=== PATIENT | male | born 1970 | race Caucasian/White ===

== ENCOUNTER 2021-07-31 14:41 | Emergency (ER) | payer BC, OTHER ==
[2021-07-31] MEDS ORDERED: Ibuprofen 600 MG Tab PO ONE (15:40)
--- NOTE | 2021-07-31 15:40 | EDM.PDOC ---
<MaggieBrennon Yazmin - Last Filed: 08/01/21 03:53> ED HPI GENERAL MEDICAL PROBLEM - General Chief Complaint: Respiratory Problem Stated Complaint: KILLDEER AMB Time Seen by Provider: 07/31/21 15:31 - Related Data Allergies Allergy/AdvReac Type Severity Reaction Status Date / Time dust, cats and dogs Allergy Difficulty Uncoded 07/31/21 14:48 Breathing Home Meds: Home Meds Budesonide/Formoterol Fumarate [Symbicort 80-4.5 MCG] 2 puff IH BID 07/31/21 [History] Course - Re-Assessments/Exams Free Text/Narrative Re-Assessment/Exam: 08/01/21 02:17 Checking in on the patient is Dr. Thayer is off shift patient is doing well. No new complaints. We have actually been able to decrease his oxygen down to 2 L. 08/01/21 03:51 I was notified a short time ago by the [facility] that a bed was available at [facility]. I did call [facility] talk to Jean-Paul at the call center who in fact confirms this availability and was waiting for my call. He got me in touch with Dr. Ivy, the hospitalist who kindly accepted the patient. Patient will be started on remdesivir and dexamethasone and the transfer has been set up. Departure - Departure Time of Disposition: 03:52 Disposition: DC/Tfer to [facility] 02 Clinical Impression: Pneumonia due to COVID-19 virus - Discharge Information Referrals: Deanne Stock SHARK BIOLOGIST [Primary Care Provider] - Forms: ED Department Discharge <Eduard Thayer - Last Filed: 08/02/21 06:56> ED HPI GENERAL MEDICAL PROBLEM - General Source of Information: Reports: Patient History Limitations: Reports: No Limitations - History of Present Illness INITIAL COMMENTS - FREE TEXT/NARRATIVE: 51-year-old male presents to the ED from [facility] after going to the catheter clinic today. Identified to have very low O2 sats I believe in the upper 80s and was advised to come to the ED. Covid test done at the clinic in [facility] today was positive he reports he has been ill for about a week with development of headache fever chills nasal congestion initially and sore throat. Within a day or 2 about it moved into his chest and he has a paroxysmal mildly productive cough at this time. He has not looked at the phlegm. Denies any pain when he takes in a deep breath. Intermittent fever with for which he has been taking Tylenol. Generalized weakness. Decreased appetite. Very minimal diarrhea he states once a day might be loose. He denies being diabetic. He has morbid obese with BMI of 48.1. History of asthma. He denies hypertension history .He lives in [place] and he works for the [employer]. He has a and children at home who are not showing any signs or symptoms of illness. His O2 sats are currently 93% on 4 L/min by nasal cannula. Onset: Sudden Onset Date: 07/24/21 Duration: Day(s):, Getting Worse Location: Reports: Face (Sore throat marked nasal congestion), Chest (Congestion with paroxysmal minimally productive cough.), Generalized, Other (Generalized myalgia with intermittent fever chills. Mild diarrhea) Quality: Reports: Ache Severity: Moderate (Generalized myalgia) Improves with: Reports: Medication (Tylenol helps.) Worsens with: Reports: Movement (Dyspnea and weakness) Context: Denies: Activity, Exercise ( worsened by activity), Lifting, Sick Contact, Trauma, Other Associated Symptoms: Reports: Cough, cough w sputum, Fever/Chills, Headaches, Loss of Appetite, Malaise, Shortness of Breath, Weakness, Other. 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: Acetaminophen (Mild diarrhea) Past Medical History Respiratory History: Reports: Asthma Musculoskeletal History: Reports: Osteoarthritis (Knees hips low back neck at times) Endocrine/Metabolic History: Reports: Obesity/BMI 30+ Social & Family History - Tobacco Use Tobacco Use Status *Q: Never Tobacco User Second Hand Smoke Exposure: No - Recreational Drug Use Recreational Drug Use: No - Living Situation & Occupation Living situation: Reports: Occupation: Employed ED ROS GENERAL - Review of Systems Review Of Systems: See Below Constitutional: Reports: Fever, Chills, Malaise, Weakness, Fatigue, Decreased Appetite. Denies: Weight Loss HEENT: Reports: Sinus Problem (Persistent sinus congestion having to blow his nose daily), Throat Pain (. Mild throat pain) Respiratory: Reports: Shortness of Breath, Cough, Sputum (Heat). Denies: Wheezing, Pleuritic Chest Pain ( he is bringing up some sputum but has not looked at it to notice the color.) Cardiovascular: Reports: Dyspnea on Exertion. Denies: Chest Pain, Blood Pressure Problem, Claudication, Edema, Lightheadedness, Orthopnea Endocrine: Reports: Fatigue GI/Abdominal: Reports: Diarrhea (Mild diarrhea perhaps once daily.), Decreased Appetite : Reports: No Symptoms Musculoskeletal: Reports: Back Pain, Joint Pain Skin: Reports: No Symptoms (He sips neck at times) Neurological: Reports: Headache (With initial onset of illness but not over the last 4 days.) Psychiatric: Reports: No Symptoms Hematologic/Lymphatic: Reports: No Symptoms Immunologic: Reports: No Symptoms ED EXAM, GENERAL - Physical Exam Exam: See Below Exam Limited By: No Limitations General Appearance: Alert, WD/WN, Mild Distress, Other (Patient feels very warm to palpation. Temperature was recorded at 38.2 degrees. Heart rate was 95 and sinus respiratory is 18 with O2 sats of 90% room air. He is 93 to 94% on 4 L/min by nasal cannula. BP 131/88) Eye Exam: Bilateral Eye: Normal Inspection (No scleral icterus no blepharal pallor), PERRL Ears: Normal TMs Throat/Mouth: Normal Inspection, Normal Lips, Normal Oropharynx, Other (Tongue is dry and coated.) Head: Atraumatic, Normocephalic Neck: Normal Inspection, Supple, Non-Tender, Full Range of Motion. No: Carotid Bruit, Lymphadenopathy (L), Lymphadenopathy (R) Respiratory/Chest: No Respiratory Distress, No Accessory Muscle Use, Rhonchi (Scattered rhonchi both lung bases.). No: Lungs Clear, Normal Breath Sounds ( They do not clear with coughing) Cardiovascular: Normal Peripheral Pulses, Regular Rate, Rhythm, No Edema, No Gallop, No Murmur, No Rub Peripheral Pulses: 2+: Carotid (L), Carotid (R), Posterior Tibial (L), Posterior Tibial (R), Dorsalis Pedis (L), Dorsalis Pedis (R) GI/Abdominal: Normal Bowel Sounds, Soft, Non-Tender, No Organomegaly, No Mass, Pelvis Stable Back Exam: Normal Inspection, Full Range of Motion. No: CVA Tenderness (L), CVA Tenderness (R) Extremities: Normal Inspection, Normal Range of Motion, Non-Tender, No Pedal Edema Neurological: Alert, Oriented, CN II-XII Intact, Normal Cognition, Normal Gait Psychiatric: Normal Affect, Normal Mood Skin Exam: Warm, Dry, Intact, Normal Color, No Rash #1 Interpretation EKG Date: 07/31/21 Time: 16:35 Rhythm: NSR Rate (Beats/Min): 85 [place]: Normal P-Wave: Enlarged (Consider left atrial hypertrophy) QRS: Other (Early R wave transition consider right ventricular hypertrophy versus septal hypertrophy pattern. Tall R wave in lead I is concerned assisted with left ventricular perjury pattern. Q waves noted in leads I and aVL less than 25% of the QRS complex and felt to be coincidental. Consider old lateral) ST-T: Other (Diffuse early repolarization pattern) QT: Normal EKG Interpretation Comments: Abnormal ECG Course - Vital Signs Last Recorded V/S: Last Vital Signs Temp 38.2 C H 07/31/21 14:45 Pulse 95 07/31/21 14:45 Resp 18 07/31/21 14:45 BP 131/88 07/31/21 14:45 Pulse Ox 91 L 07/31/21 14:45 - Orders/Labs/Meds Labs: Laboratory Tests 07/31/21 07/31/21 07/31/21 Range/Units 15:40 16:20 16:20 WBC 4.03 L (4.23-9.07) K/mm3 RBC 4.90 (4.63-6.08) M/mm3 Hgb 14.5 (13.7-17.5) gm/dl Hct 42.7 (40.1-51.0) % MCV 87.1 (79.0-92.2) fl MCH 29.6 (25.7-32.2) pg MCHC 34.0 (32.2-35.5) g/dl RDW Std Deviation 45.3 H (35.1-43.9) fL Plt Count 152 L (163-337) K/mm3 MPV 9.6 (9.4-12.3) fl Neut % (Auto) 79.7 H (34.0-67.9) % Lymph % (Auto) 13.4 L (21.8-53.1) % Williamson % (Auto) 6.7 (5.3-12.2) % Eos % (Auto) 0 L (0.8-7.0) Baso % (Auto) 0.0 L (0.1-1.2) % Neut # (Auto) 3.21 (1.78-5.38) K/mm3 Lymph # (Auto) 0.54 L (1.32-3.57) K/mm3 Williamson # (Auto) 0.27 L (0.30-0.82) K/mm3 Eos # (Auto) 0.00 L (0.04-0.54) K/mm3 Baso # (Auto) 0.00 L (0.01-0.08) K/mm3 PT 10.3 (9.7-12.0) SECONDS INR 0.93 APTT 28.8 (21.7-31.4) SECONDS D-Dimer, Quantitative 0.86 H (0.19-0.50) mg/L Sodium 135 L (136-145) mEq/L Potassium 4.0 (3.5-5.1) mEq/L Chloride 98 (98-107) mEq/L Carbon Dioxide 26 (21-32) mEq/L Anion Gap 15.0 (5-15) BUN 16 (7-18) mg/dL Creatinine 1.3 (0.7-1.3) mg/dL Est Cr Clr Drug Dosing 67.23 mL/min Estimated GFR (MDRD) 58 (>60) mL/min BUN/Creatinine Ratio 12.3 L (14-18) Glucose 126 H (70-99) mg/dL Hemoglobin A1c ( - 5.6) % Calcium 8.5 (8.5-10.1) mg/dL Magnesium 1.8 (1.8-2.4) mg/dL Total Bilirubin 0.9 (0.2-1.0) mg/dL AST 151 H (15-37) U/L ALT 85 H (16-63) U/L Alkaline Phosphatase 62 (46-116) U/L Lactate Dehydrogenase 587 H (85-227) U/L CK-MB (CK-2) 3.0 (0-3.6) ng/ml Troponin I < 0.017 (0.00-0.056) ng/mL C-Reactive Protein 4.4 H* (<1.0) mg/dL NT-Pro-B Natriuret Pep (0-125) pg/mL Total Protein 7.7 (6.4-8.2) g/dl Albumin 3.1 L (3.4-5.0) g/dl Globulin 4.6 gm/dL Albumin/Globulin Ratio 0.7 L (1-2) 07/31/21 07/31/21 Range/Units 16:20 16:20 WBC (4.23-9.07) K/mm3 RBC (4.63-6.08) M/mm3 Hgb (13.7-17.5) gm/dl Hct (40.1-51.0) % MCV (79.0-92.2) fl MCH (25.7-32.2) pg MCHC (32.2-35.5) g/dl RDW Std Deviation (35.1-43.9) fL Plt Count (163-337) K/mm3 MPV (9.4-12.3) fl Neut % (Auto) (34.0-67.9) % Lymph % (Auto) (21.8-53.1) % Williamson % (Auto) (5.3-12.2) % Eos % (Auto) (0.8-7.0) Baso % (Auto) (0.1-1.2) % Neut # (Auto) (1.78-5.38) K/mm3 Lymph # (Auto) (1.32-3.57) K/mm3 Williamson # (Auto) (0.30-0.82) K/mm3 Eos # (Auto) (0.04-0.54) K/mm3 Baso # (Auto) (0.01-0.08) K/mm3 PT (9.7-12.0) SECONDS INR APTT (21.7-31.4) SECONDS D-Dimer, Quantitative (0.19-0.50) mg/L Sodium (136-145) mEq/L Potassium (3.5-5.1) mEq/L Chloride (98-107) mEq/L Carbon Dioxide (21-32) mEq/L Anion Gap (5-15) BUN (7-18) mg/dL Creatinine (0.7-1.3) mg/dL Est Cr Clr Drug Dosing mL/min Estimated GFR (MDRD) (>60) mL/min BUN/Creatinine Ratio (14-18) Glucose (70-99) mg/dL Hemoglobin A1c 6.5 H ( - 5.6) % Calcium (8.5-10.1) mg/dL Magnesium (1.8-2.4) mg/dL Total Bilirubin (0.2-1.0) mg/dL AST (15-37) U/L ALT (16-63) U/L Alkaline Phosphatase (46-116) U/L Lactate Dehydrogenase (85-227) U/L CK-MB (CK-2) (0-3.6) ng/ml Troponin I (0.00-0.056) ng/mL C-Reactive Protein (<1.0) mg/dL NT-Pro-B Natriuret Pep 119 (0-125) pg/mL Total Protein (6.4-8.2) g/dl Albumin (3.4-5.0) g/dl Globulin gm/dL Albumin/Globulin Ratio (1-2) Meds: Medications Discontinued Medications Generic Name Dose Route Start Last Admin Trade Name Freq PRN Reason Stop Dose Admin Dexamethasone 6 mg 08/01/21 03:18 08/01/21 04:04 Dexamethasone 10 Mg/Ml Sdv IVPUSH 08/01/21 03:19 6 mg ONETIME ONE Administration Diphenhydramine HCl 50 mg 07/31/21 18:26 Diphenhydramine 50 Mg/Ml Sdv IVPUSH ASDIRECTED PRN hypersensitivity reaction Epinephrine HCl 0.3 mg 07/31/21 18:26 Epinephrine 1 Mg/Ml Sdv IM ASDIRECTED PRN hypersensitivity reaction Famotidine 20 mg 07/31/21 18:26 Famotidine 20 Mg/2 Ml Sdv IVPUSH ASDIRECTED PRN hypersensitivity reaction Dextrose/Sodium Chloride 1,000 mls @ 150 mls/hr 07/31/21 15:45 08/01/21 02:13 Dextrose 5%-Normal Saline IV 150 mls/hr ASDIRECTED SIL Administration CASIRIVIMAB/IMDEVIMAB 10 ml/ 110 mls @ 220 mls/hr 07/31/21 18:26 07/31/21 19:43 Sodium Chloride IV 07/31/21 18:55 220 mls/hr ONETIME ONE Administration Remdesivir 200 mg/ Sodium 250 mls @ 250 mls/hr 08/01/21 03:17 08/01/21 04:04 Chloride IV 08/01/21 03:18 250 mls/hr ONETIME ONE Administration Ibuprofen 600 mg 07/31/21 15:40 07/31/21 16:18 Ibuprofen 600 Mg Tab PO 07/31/21 15:41 600 mg ONETIME ONE Administration Methylprednisolone Sodium Succinate 125 mg 07/31/21 18:26 Methylprednisolone Sodium Succinate 125 Mg/2 Ml Sdv IVPUSH ASDIRECTED PRN hypersensitivity reaction Sodium Chloride 30 ml 07/31/21 18:30 Sodium Chloride 0.9% 10 Ml Syringe FLUSH ASDIRECTED SIL - Radiology Interpretation Free Text/Narrative:: 51-year-old male presents to the ED with signs and symptoms of COVID-19 illness with illness starting about a week ago. He would therefore be on day 7 or 8 of illness. He presents with hypoxia with O2 sats of 88% room air. 93 to 94% on 4 L/min by nasal cannula. Patient is morbidly obese with a BMI of greater than 48. He is therefore very high risk from COVID-19 illness. He will have routine labs performed. Chest x-ray 1 view. Oxygen will be continued at 4 L/min by nasal cannula. He has a history of asthma but I do not hear any wheezing at this time. - Re-Assessments/Exams Free Text/Narrative Re-Assessment/Exam: 07/31/21 17:16 : Portable chest x-ray reveals scattered areas of parenchymal densities noted within both sides of the chest. Heart is enlarged. Upper mediastinum is normal. No acute osseous abnormalities are seen. Increased density within both sides of the chest highly suspicious for Covid pneumonia Free Text/Narrative Re-Assessment/Exam: 07/31/21 18:04 Labs reveal a normal white count at 4.03 with a left shift of 79.7% neutrophils. Hemoglobin is 14.5 with hematocrit of 42.7. Platelet count is 152,000 which is low normal. PT was 10.3 with an INR of 0.93. PTT is 28.8. D-dimer is elevated at 0.86. Sodium is 135 with a potassium of 4.0. Chloride 98 with a bicarb of 26. Anion gap is 15.0. BUN is 16 with a creatinine of 1.3 and a GFR of 58. Glucose is 126. Hemoglobin A1c is 6.5. Calcium is 8.5 with a magnesium of 1.8. Bilirubin is 0.9 AST mildly elevated 151 and ALT elevated at 85. Alkaline phosphatase is normal at 62. Elevated transaminases likely due to fatty liver disease. LDH is elevated at 587. CK-MB fraction is 3.0. Troponin I is less than 0.017. C-reactive protein is 4.4. BNP is 119 total protein 7.7 with an albumin fraction of 3.1. 02 sats have improved to 97 to 98% on 4 L. He will be weaned down on his oxygen. Patient is at very high risk of deteriorating due to his high BMI of 48.1. Even though he is mildly hypoxic admitted decision to go ahead with monoclonal antibody treatment as we have nothing else to offer me otherwise. 07/31/21 20:11 Patient has finished his Regen/Cov and feels fine. Patient will be monitored in the ED overnight since ideally he should be admitted to the hospital for IV remdesivir or alternative antiviral treatment. There is hopefully going to be a bed available tomorrow. Patient has been placed on the state list for admission to any bed that becomes available but we were told not to hold her breath.Dr Serrano is the ER physician on-call and he is made aware of the patient's need to stay in the ED overnight for oxygen support. I will come back in the morning around 0800 hrs. and see if I can arrange his admission to hospital. Sepsis Event Note (ED) - Evaluation Sepsis Screening Result: No Definite Risk
[2021-07-31] MEDS: Dextrose 5%-0.9% NaCl 1,000 ML IV SCH (16:18)
--- NOTE | 2021-07-31 16:18 | CR ---
Chest: Portable view of the chest was obtained. Comparison: No prior chest imaging is available. Scattered areas of parenchymal densities are noted within both sides of the chest. Heart is enlarged. Upper mediastinum is normal. No acute osseous abnormality is seen. Impression: 1. Increased density within both sides of the chest highly suspicious for COVID pneumonia. Please correlate. Diagnostic code #3
[2021-07-31 17:03] LABS: HEMOGLOBIN A1C 6.5 %
[2021-07-31] MEDS ORDERED: Famotidine 20 MG/2 ML SDV IVPUSH PRN (18:26)
[2021-07-31] MEDS ORDERED: diphenhydrAMINE 50 MG/ML SDV IVPUSH PRN (18:26)
[2021-07-31] MEDS ORDERED: methylPREDNISolone Sodium Succinate 125 MG/2 ML SDV IVPUSH PRN (18:26)
[2021-07-31] MEDS ORDERED: EPINEPHrine 1 MG/ML SDV IM PRN (18:26)
[2021-07-31] MEDS ORDERED: Sodium Chloride 0.9% 10 ML Syringe FLUSH SCH (18:30)
[2021-08-01] MEDS: Dextrose 5%-0.9% NaCl 1,000 ML IV SCH (02:13)
[2021-08-01] MEDS ORDERED: REMDESIVIR 200 MG in Sodium Chloride 0.9% 250 ML IV ONE (03:17)
[2021-08-01] MEDS ORDERED: Dexamethasone 10 MG/ML SDV IVPUSH ONE (03:18)
== END 2021-08-01 04:20 ==
LOC: JD.ED 14:41
DX: U07.1 COVID-19 (principal); J12.82 Pneumonia due to coronavirus disease 2019; E66.9 Obesity, unspecified; Z68.42 Body mass index [BMI] 45.0-49.9, adult; Z91.09 Other allergy status, other than to drugs and biological substances
CPT/HCPCS: 36415; 71045; 80053; 82553; 83036; 83615; 83735; 83880; 84484; 85025; 85379; 85610; 85730; 86140; 93005; 96374; 99285; A9270; J1100; J7042; J7050; M0243; Q0243

== ENCOUNTER 2024-08-03 11:19 | Emergency (ER) | payer BC ==
[2024-08-03 12:09] LABS: BASOPHILS ABSOLUTE AUTO 0.1 K/mm3 (0.0-0.2); EOSINOPHILS ABSOLUTE AUTO 0.2 K/mm3 (0.0-0.4); EOSINOPHILS PERCENT AUTO 2.6 % (0.0-6.0); HEMATOCRIT 43.8 % (42.0-52.0); HEMOGLOBIN 14.9 gm/dl (14.0-18.0); IMMATURE GRAN ABSOLUTE AUTO 0.01 K/mm3 (0.00-0.05); IMMATURE GRAN PERCENT AUTO 0.1 % (0.0-0.4); LYMPHOCYTES ABSOLUTE AUTO 1.5 K/mm3 (1.0-4.8); LYMPHOCYTES PERCENT AUTO 22.2 % (24.0-44.0); MEAN CORPUSCULAR HEMOGLOBIN 30.4 pg (28.0-32.0); MEAN PLATELET VOLUME 9.3 fl (9.4-12.4); MONOCYTES ABSOLUTE AUTO 0.5 K/mm3 (0.0-0.8); MONOCYTES PERCENT AUTO 7.4 % (0.0-8.0); NEUTROPHILS ABSOLUTE AUTO 4.5 K/mm3 (1.8-7.7); NEUTROPHILS PERCENT AUTO 66.7 % (41.0-71.0); PLATELET COUNT,PLT 231 K/mm3 (150-400)
[2024-08-03 12:15] LABS: MEAN CORPUSCULAR VOLUME 89.4 fl (83.0-99.0)
[2024-08-03 12:34] LABS: A/G RATIO 0.9 (1-2); ALBUMIN 3.7 g/dl (3.4-5.0); ANION GAP 9.1 (5-15); BILIRUBIN TOTAL 0.6 mg/dL (0.2-1.0); CALCIUM 9.2 mg/dL (8.5-10.1); EST CRCL DRUG DOSING (CG) 84.45 mL/min; POTASSIUM,K 4.1 mEq/L (3.5-5.1); PROTEIN TOTAL,TP 7.8 g/dl (6.4-8.2)
== END 2024-08-03 14:20 | disposition home or self-care (01) ==
LOC: JD.ED 11:19
DX: I10 Essential (primary) hypertension (principal); J45.909 Unspecified asthma, uncomplicated; E66.9 Obesity, unspecified; Z68.42 Body mass index [BMI] 45.0-49.9, adult; Z86.16 Personal history of COVID-19; Z79.899 Other long term (current) drug therapy; Z91.048 Other nonmedicinal substance allergy status
CPT/HCPCS: 36415; 71046; 71046-26; 80053; 84484; 85025; 93005; 93010; 99283; 99284